=== PATIENT | female | born 1990 | race Caucasian/White ===

== ENCOUNTER → 2019-01-03 | Emergency (ER) | payer OTHER | END | disposition left against medical advice (07) | LOC: ER 12:42 | DX: Z53.20 Procedure and treatment not carried out because of patient's decision for unspecified reasons (principal) ==

== ENCOUNTER 2019-05-18 12:19 | Inpatient (IN) | payer OTHER ==
[~2019-05-18] VITALS: Ht 172.7 cm; Wt 84.8 kg
[2019-05-31] MEDS ORDERED: PRENATAL TABLE1 EAC2 PO (08:26)
== END 2019-06-02 11:12 | disposition home or self-care (01) | DRG 807 ==
LOC: OB/GYN 05-25 14:15 → LDR 05-31 07:52 → OB/GYN 05-31 07:52
PROVIDERS: ADMIT Specialist
PROC: 10E0XZZ Delivery of Products of Conception, External Approach (ICD-10-PCS; principal; 2019-05-31)
PROC: 0HQ9XZZ Repair Perineum Skin, External Approach (ICD-10-PCS; 2019-05-31)
PROC: 10907ZC Drainage of Amniotic Fluid, Therapeutic from Products of Conception, Via Natural or Artificial Opening (ICD-10-PCS; 2019-05-31)
PROC: 4A1HXCZ Monitoring of Products of Conception, Cardiac Rate, External Approach (ICD-10-PCS; 2019-05-31)
DX: O70.0 First degree perineal laceration during delivery (principal); Z37.0 Single live birth; Z3A.39 39 weeks gestation of pregnancy

== ENCOUNTER 2020-10-26 01:47 | Inpatient (IN) | payer OTHER ==
[~2020-10-26] VITALS: Ht 175.3 cm; Wt 88.5 kg
[~2020-10-26 01:47] MED LIST: PRENATAL TABLE1 EAC2 PO
[2020-10-26] MEDS ORDERED: FOLIC ACID20 MG PO (02:06)
== END 2020-10-28 14:18 | disposition home or self-care (01) | DRG 805 ==
LOC: LDR 01:47 → OB/GYN 01:47 → LDR 05:22 → OB/GYN 09:52
PROVIDERS: ADMIT Specialist; ATTEND Specialist
PROC: 10E0XZZ Delivery of Products of Conception, External Approach (ICD-10-PCS; principal; 2020-10-26)
PROC: 0HQ9XZZ Repair Perineum Skin, External Approach (ICD-10-PCS; 2020-10-26)
PROC: 10907ZC Drainage of Amniotic Fluid, Therapeutic from Products of Conception, Via Natural or Artificial Opening (ICD-10-PCS; 2020-10-26)
PROC: 4A1HXFZ Monitoring of Products of Conception, Cardiac Rhythm, External Approach (ICD-10-PCS; 2020-10-26)
DX: O98.52 Other viral diseases complicating childbirth (principal); U07.1 COVID-19; Z37.0 Single live birth; Z3A.39 39 weeks gestation of pregnancy; Z20.822 Contact with and (suspected) exposure to COVID-19